=== PATIENT | female | born 1985 | race African-American/Black ===

== ENCOUNTER 2017-11-25 16:08 | Emergency (ER) | END 2017-11-25 18:30 | disposition left against medical advice (07) ==

== ENCOUNTER 2017-11-26 05:17 | Emergency (ER) | END 2017-11-26 06:30 | disposition left against medical advice (07) ==

== ENCOUNTER 2018-01-04 16:44 | Inpatient (IN) | END 2018-01-04 19:45 | disposition left against medical advice (07) | DRG 440 ==

== ENCOUNTER 2018-07-04 05:38 | Emergency (ER) | END 2018-07-04 11:36 | disposition home or self-care (01) ==

== ENCOUNTER 2018-07-08 22:15 | Emergency (ER) | END 2018-07-09 01:43 | disposition home or self-care (01) ==

== ENCOUNTER 2018-07-10 04:33 | Emergency (ER) | END 2018-07-10 06:55 | disposition home or self-care (01) ==

== ENCOUNTER 2018-08-07 10:33 | Emergency (ER) | END 2018-08-07 11:20 | disposition home or self-care (01) ==

== ENCOUNTER 2018-08-29 09:55 | Emergency (ER) | END 2018-08-29 11:56 | disposition left against medical advice (07) ==

== ENCOUNTER 2018-12-11 10:24 | Emergency (ER) | payer OTHER ==
[~2018-12-11] VITALS: Wt 40.0 kg
[~2018-12-11 10:24] MED LIST: DOCU-144 PO; HYDR-3980 PO; METF-849 PO; NAPR-985 PO; NOVO7030 SC
[2018-12-11 10:31] VITALS: BP 111/69; PULSE 111; RESP 20
[2018-12-11] MEDS ORDERED: INSULIN LISPRO 100 UNIT/ML VIAL SC ONE (17:30)
[2018-12-11] MEDS ORDERED: IBUPROFEN 800 MG TAB PO ONE (17:30)
--- NOTE | 2018-12-11 18:17 | ERD ---
ER Documentation Chief Complaint Chief Complaint CP,SANTO,BODY ACHES, LIGHT HEADED HPI Patient is a 33-year-old female with diabetes who presents with chest pain and hernia pain. She said that she has felt sick for the past 2 weeks. She has had no treatment yet. Upon review of the emergency department information exchange system the patient has visits to 3 separate emergency departments and she was seen already today at [facility] emergency department. Upon review of [facility] information she has had multiple visits to our emergency department for pain complaints as well. She says that she does not currently have a primary doctor. She had a gastric bypass surgery done at [facility]. ROS All systems reviewed and are negative except as per history of present illness. Medications Home Meds Active Scripts Naproxen* (Naprosyn*) 500 Mg Tablet, 500 MG PO BID PRN for PAIN AND/OR INFLAMMATION, #30 TAB Prov:RAKAN BLACKMAN MD 07/10/18 Insulin Isophan/Regular (Humulin 70/30) 100 Units/Ml Susp, 26 UNIT SC BID for 30 Days, EA Prov:EARLENE SINGH 07/09/18 Metformin* (Glucophage*) 500 Mg Tab, 500 MG PO BID WITH MEALS, #90 TAB Prov:EARLENE SINGH 07/09/18 Hydrocodone/Acetaminophen ([place] 10-325 Tablet) 1 Each Tablet, 1 TAB PO Q6H PRN for PAIN, #7 TAB Prov:EARLENE SINGH 07/09/18 Docusate Sodium* (Colace*) 100 Mg Capsule, 100 MG PO TID, #30 CAP Prov:EARLENE SINGH 07/09/18 Allergies Allergies: Coded Allergies: morphine (Verified Allergy, Severe, 08/29/18) tomas (Verified Allergy, Unknown, 08/29/18) PMhx/Soc History of Surgery: No Anesthesia Reaction: No Hx Neurological Disorder: No Hx Respiratory Disorders: No Hx Cardiac Disorders: Yes (diabetes mellitus) Hx Psychiatric Problems: No Hx Miscellaneous Medical Probl: Yes (esophageal stricture) Hx Alcohol Use: Yes Hx Substance Use: Yes Hx Tobacco Use: Yes FmHx Family History: diabetes Physical Exam Vitals Vital Signs Date Temp Pulse Resp B/P (MAP) Pulse Ox O2 O2 Flow FiO2 Time Delivery Rate 12/11/18 98.1 111 20 111/69 99 10:31 (83) Physical Exam Const: No acute distress Head: Atraumatic Eyes: Normal Conjunctiva ENT: Normal External Ears, Nose and Mouth. Neck: Full range of motion. No meningismus. Resp: Clear to auscultation bilaterally Cardio: Regular rate and rhythm, no murmurs Abd: Soft, easily reducible abdominal hernia without signs of incarceration Skin: No petechiae or rashes Back: No midline or flank tenderness Ext: No cyanosis, or edema Neur: Awake and alert Psych: Normal Mood and Affect Results 24 hrs Laboratory Tests Test 12/11/18 12:18 12/11/18 15:58 Bedside Glucose 260 mg/dL 469 mg/dL Current Medications Medications Dose Sig/Sugar Start Time Status Last (Trade) Ordered Route PRN Stop Time Admin Dose Reason Admin Ibuprofen 800 mg ONCE ONCE 12/11/18 DC (Motrin) PO 17:30 12/11/18 17:31 Insulin 20 unit ONCE ONCE 12/11/18 DC Human SC 17:30 Lispro 12/11/18 17:31 (Humalog) Procedures/MDM EKG was ordered but the patient left prior to obtaining. Chest x-ray was ordered but the patient left prior to obtaining. Patient is a 33-year-old female who presents with abdominal pain and chest pain. I told her I will give her ibuprofen for pain and very soon afterwards she had eloped. The patient did not wait for her chest x-ray or EKG. I do believe there is drug-seeking behavior and I doubt significant etiology of her pain. I doubt acute coronary syndrome, pneumonia, pneumothorax, pulmonary embolism, or aortic dissection. I doubt incarcerated hernia. I told her she would need to follow-up with her surgeon who did the surgery to have the hernia repaired. Departure Diagnosis: Primary Impression: Chest pain Chest pain type: unspecified Qualified Codes: R07.9 - Chest pain, unspecified Additional Impression: Abdominal pain Abdominal location: generalized Qualified Codes: R10.84 - Generalized abdominal pain Condition: Fair Patient Instructions: Abdominal Pain, Chest Pain, Uncertain Cause Referrals: [facility] (PCP) Additional Instructions: Call your primary care doctor TOMORROW for an appointment during the next 1-2 days.See the doctor sooner or return here if your condition worsens before your appointment time. CECI ZUNIGA MD Dec 11, 2018 18:17
== END 2018-12-11 17:33 | disposition left against medical advice (07) ==
LOC: E/R 10:24
DX: R07.9 Chest pain, unspecified (principal); E11.9 Type 2 diabetes mellitus without complications; R10.84 Generalized abdominal pain; Z79.4 Long term (current) use of insulin; Z87.891 Personal history of nicotine dependence
CPT/HCPCS: 82962; 93005; Z7502